=== PATIENT | male | born 1955 | race Caucasian/White ===

== ENCOUNTER 2017-01-28 14:38 | Inpatient (IN) | payer MEDICAID ==
[~2017-01-28] VITALS: Ht 167.6 cm; Wt 78.9 kg
[~2017-01-28 14:38] MED LIST: DIGOXIN; LISI10TA5 PO; SULFAMETHOXAZOLE
[2017-01-28 16:36] LABS: INR 1.4; PROTHROMBIN TIME 14.9 sec
[2017-01-28 16:39] LABS: EOSINOPHILS % 2.8 % (0.0-5.0); HEMATOCRIT. 36.7 % (42.0-52.0); HEMOGLOBIN. 12.4 g/dL (14.0-18.0); LYMPHOCYTES % 17.2 % (20.0-50.0); MEAN CORPUSCULAR HEMOGLOBIN 30.3 pg (28.0-32.0); MEAN CORPUSCULAR VOLUME 89.7 fL (80.0-94.0); MEAN PLATELET VOLUME 7.4 fl (7.4-10.4); MONOCYTES % 11.7 % (2.0-8.0); NEUTROPHILS % 67.3 % (40.0-76.0); PLATELET 271 x1000/uL (130-400); RED BLOOD CELL COUNT 4.09 mill/uL (4.7-6.1); RED CELL DISTRIBUTION WIDTH 15.9 % (11.6-14.6)
[2017-01-28 16:41] LABS: CARBON DIOXIDE 30 mEq/L (21-32); CHLORIDE 101 mEq/L (98-107)
[2017-01-28] MEDS ORDERED: FUROSEMIDE 40MG/4ML VIAL IVP ONE (18:15)
[2017-01-28 19:34] LABS: *AMPHETAMINES SCREEN URINE PRESUMTIVE POSITIVE (NEGATIVE); *BARBITURATES SCREEN URINE NEGATIVE (NEGATIVE); *BENZODIAZEPINES SCREEN URINE NEGATIVE (NEGATIVE); *COCAINE SCREEN URINE PRESUMTIVE POSITIVE (NEGATIVE); CANNABINOID URINE SCREEN NEGATIVE (NEGATIVE); METHADONE URINE SCREEN NEGATIVE (NEGATIVE); OPIATES URINE SCREEN NEGATIVE (NEGATIVE); PHENCYCLIDINE URINE SCREEN NEGATIVE (NEGATIVE)
[2017-01-28] MEDS ORDERED: HYDROCODONE/ACETAMINOPHEN 5/325MG TABLET PO PRN (21:15)
[2017-01-28] MEDS ORDERED: ACETAMINOPHEN 325MG TABLET PO PRN (21:15)
[2017-01-28] MEDS ORDERED: ONDANSETRON HCL 4MG/2ML VIAL IV PRN (21:15)
[2017-01-28] MEDS ORDERED: CLONIDINE 0.1MG TABLET PO PRN (21:15)
[2017-01-28] MEDS ORDERED: MAGNESIUM/ALUMINUM HYDROXIDE/SIMETHICONE 30ML UDC PO PRN (21:15)
[2017-01-28] MEDS ORDERED: DIGOXIN 500MCG/2ML AMP IV ONE (21:15)
[2017-01-28] MEDS ORDERED: DIPHENHYDRAMINE 50MG/ML VIAL IV PRN (21:15)
[2017-01-28] MEDS ORDERED: ZOLPIDEM TARTRATE 5MG TABLET PO PRN (21:15)
[2017-01-28] MEDS ORDERED: PROMETHAZINE/DEXTROMETHORPHAN 6.25-15MG/5ML BOTTLE 120ML PO PRN (22:15)
[2017-01-29] VITALS (9 sets, daily range): BP systolic 91–112; BP diastolic 50–77
[2017-01-29] MEDS ORDERED: CARV3.1242 PO (05:43)
[2017-01-29] MEDS ORDERED: DIGO250T4 PO (05:43)
[2017-01-29] MEDS ORDERED: LISI-186 PO (05:43)
[2017-01-29] MEDS ORDERED: FURO80TA87 PO (05:43)
[2017-01-29] MEDS: SODIUM CHLORIDE 0.9% INJ 3ML FLUSH IVF SCH ×3 (06:33→22:13)
[2017-01-29] MEDS: ENOXAPARIN 40MG/0.4ML SYR SUBCUT SCH (08:55)
[2017-01-29] MEDS ORDERED: LISINOPRIL 5MG TABLET PO SCH (09:00)
[2017-01-29] MEDS ORDERED: POTASSIUM CHLORIDE 20MEQ TABLET SR PO SCH (09:00)
[2017-01-29] MEDS ORDERED: FUROSEMIDE 100MG/10ML VIAL IVP SCH (09:00)
[2017-01-29] MEDS ORDERED: METOLAZONE 10MG TABLET PO SCH (14:15)
[2017-01-29] MEDS: FUROSEMIDE 100MG/10ML VIAL IVP SCH (16:21)
[2017-01-29] MEDS: GUAIFENESIN/CODEINE 100-10MG/5ML UDC PO PRN (16:22)
[2017-01-29] MEDS: POTASSIUM CHLORIDE 20MEQ TABLET SR PO SCH (16:56)
[2017-01-29] MEDS: CLOTRIMAZOLE 1% CREAM 30GM TOP SCH (22:13)
[2017-01-29] MEDS: HYDROCODONE/ACETAMINOPHEN 10/325MG TABLET PO PRN (22:51)
[2017-01-30] VITALS (12 sets, daily range): BP systolic 86–122; BP diastolic 48–73
[2017-01-30] MEDS: SODIUM CHLORIDE 0.9% INJ 3ML FLUSH IVF SCH ×3 (05:05→21:48)
[2017-01-30 06:14] LABS: HEMATOCRIT. 36.9 % (42.0-52.0); HEMOGLOBIN. 12.7 g/dL (14.0-18.0); MEAN CORPUSCULAR VOLUME 90.3 fL (80.0-94.0); MEAN PLATELET VOLUME 7.3 fl (7.4-10.4); PLATELET 238 x1000/uL (130-400); RED BLOOD CELL COUNT 4.09 mill/uL (4.7-6.1); RED CELL DISTRIBUTION WIDTH 15.9 % (11.6-14.6)
[2017-01-30] MEDS: GUAIFENESIN/CODEINE 100-10MG/5ML UDC PO PRN (07:39)
[2017-01-30 07:47] LABS: CARBON DIOXIDE 36 mEq/L (21-32); CHLORIDE 96 mEq/L (98-107)
[2017-01-30] MEDS: FUROSEMIDE 100MG/10ML VIAL IVP SCH ×2 (09:15→19:20)
[2017-01-30] MEDS: POTASSIUM CHLORIDE 20MEQ TABLET SR PO SCH ×2 (09:15→19:21)
[2017-01-30] MEDS: ENOXAPARIN 40MG/0.4ML SYR SUBCUT SCH (09:16)
[2017-01-30] MEDS: CLOTRIMAZOLE 1% CREAM 30GM TOP SCH ×2 (09:16→21:47)
[2017-01-30] MEDS: HYDROCODONE/ACETAMINOPHEN 10/325MG TABLET PO PRN (10:03)
[2017-01-30] MEDS ORDERED: POTASSIUM CHLORIDE 20MEQ TABLET SR PO NR (11:15)
[2017-01-30] MEDS: ASPIRIN 81MG TABLET PO SCH (11:25)
[2017-01-30 15:34] LABS: PLATELET ESTIMATE NORMAL
[2017-01-31] VITALS (28 sets, daily range): BP systolic 88–115; BP diastolic 20–85
[2017-01-31] MEDS: SODIUM CHLORIDE 0.9% INJ 3ML FLUSH IVF SCH ×3 (06:34→22:00)
[2017-01-31 07:57] LABS: CHLORIDE 88 mEq/L (98-107)
[2017-01-31 08:21] LABS: CARBON DIOXIDE 35 mEq/L (21-32)
[2017-01-31] MEDS: FUROSEMIDE 100MG/10ML VIAL IVP SCH ×2 (08:57→17:10)
[2017-01-31] MEDS: ENOXAPARIN 40MG/0.4ML SYR SUBCUT SCH (08:58)
[2017-01-31] MEDS: ASPIRIN 81MG TABLET PO SCH (08:58)
[2017-01-31] MEDS: POTASSIUM CHLORIDE 20MEQ TABLET SR PO SCH ×2 (08:58→17:10)
[2017-01-31] MEDS: HYDROCODONE/ACETAMINOPHEN 10/325MG TABLET PO PRN ×2 (09:23→18:42)
[2017-01-31] MEDS: CLOTRIMAZOLE 1% CREAM 30GM TOP SCH ×2 (10:00→21:58)
[2017-01-31] MEDS ORDERED: POTASSIUM CHLORIDE 20MEQ TABLET SR PO NR (14:45)
[2017-01-31] MEDS: SPIRONOLACTONE 25MG TABLET PO SCH (16:52)
[2017-01-31] MEDS ORDERED: DILTIAZEM HCL 30MG TABLET PO ONE (23:30)
[2017-02-01] VITALS (18 sets, daily range): BP systolic 89–133; BP diastolic 35–75
[2017-02-01] MEDS: HYDROCODONE/ACETAMINOPHEN 10/325MG TABLET PO PRN ×3 (02:55→17:35)
[2017-02-01] MEDS: SODIUM CHLORIDE 0.9% INJ 3ML FLUSH IVF SCH ×3 (05:14→21:04)
[2017-02-01] MEDS: DILTIAZEM HCL 30MG TABLET PO SCH ×3 (05:39→21:04)
[2017-02-01 07:38] LABS: EOSINOPHILS % 1.9 % (0.0-5.0); HEMATOCRIT. 38.1 % (42.0-52.0); HEMOGLOBIN. 12.8 g/dL (14.0-18.0); MEAN CORPUSCULAR HEMOGLOBIN 30.1 pg (28.0-32.0); MEAN CORPUSCULAR VOLUME 89.4 fL (80.0-94.0); MEAN PLATELET VOLUME 7.6 fl (7.4-10.4); MONOCYTES % 9.5 % (2.0-8.0); NEUTROPHILS % 70.6 % (40.0-76.0); PLATELET 236 x1000/uL (130-400); RED BLOOD CELL COUNT 4.26 mill/uL (4.7-6.1); RED CELL DISTRIBUTION WIDTH 15.7 % (11.6-14.6)
[2017-02-01 08:09] LABS: CARBON DIOXIDE 35 mEq/L (21-32); CHLORIDE 84 mEq/L (98-107)
[2017-02-01] MEDS: POTASSIUM CHLORIDE 20MEQ TABLET SR PO SCH ×2 (08:23→17:27)
[2017-02-01] MEDS: FUROSEMIDE 100MG/10ML VIAL IVP SCH (08:23)
[2017-02-01] MEDS: SPIRONOLACTONE 25MG TABLET PO SCH ×2 (08:23→17:28)
[2017-02-01] MEDS: ASPIRIN 81MG TABLET PO SCH (08:23)
[2017-02-01] MEDS: ENOXAPARIN 40MG/0.4ML SYR SUBCUT SCH (08:23)
[2017-02-01] MEDS: CLOTRIMAZOLE 1% CREAM 30GM TOP SCH ×2 (08:24→20:51)
[2017-02-01] MEDS ORDERED: POTASSIUM CHLORIDE 20MEQ TABLET SR PO NR (13:45)
[2017-02-01] MEDS: FUROSEMIDE 40MG/4ML VIAL IV SCH (17:28)
[2017-02-01] MEDS ORDERED: DIGOXIN 250MCG TABLET PO SCH (18:00)
[2017-02-02] VITALS (13 sets, daily range): BP systolic 92–110; BP diastolic 56–74
[2017-02-02] MEDS: DILTIAZEM HCL 30MG TABLET PO SCH ×2 (06:00→13:50)
[2017-02-02] MEDS: SODIUM CHLORIDE 0.9% INJ 3ML FLUSH IVF SCH ×2 (06:00→13:49)
[2017-02-02] MEDS: FUROSEMIDE 40MG/4ML VIAL IV SCH (06:01)
[2017-02-02] MEDS: ASPIRIN 81MG TABLET PO SCH (08:18)
[2017-02-02] MEDS: POTASSIUM CHLORIDE 20MEQ TABLET SR PO SCH (08:18)
[2017-02-02] MEDS: SPIRONOLACTONE 25MG TABLET PO SCH (08:18)
[2017-02-02] MEDS: HYDROCODONE/ACETAMINOPHEN 10/325MG TABLET PO PRN (08:24)
[2017-02-02] MEDS: CLOTRIMAZOLE 1% CREAM 30GM TOP SCH (08:35)
[2017-02-02] MEDS: ENOXAPARIN 40MG/0.4ML SYR SUBCUT SCH (08:37)
[2017-02-06] MEDS ORDERED: FURO-151 PO (01:58)
[2017-02-06] MEDS ORDERED: POTA20TA75 PO (01:58)
[2017-02-06] MEDS ORDERED: ALD50 PO (01:58)
[2017-02-06] MEDS ORDERED: DILT30TA38 PO (01:58)
[2017-02-06] MEDS ORDERED: SPIR25TA PO (01:58)
== END 2017-02-02 14:45 | disposition home or self-care (01) | DRG 194 ==
LOC: ER 16:06 → CANRESERV 20:51 → ENRESERV 20:51 → 5EST 21:14 → EDBEDREQTM 21:20 → EDBEDREQSVC 21:20 → EDBEDREQ 21:20 → ENRESERV 23:45
PROVIDERS: ADMIT Internal Medicine; ATTEND Internal Medicine
DX: I50.23 Acute on chronic systolic (congestive) heart failure (principal); I47.1 Supraventricular tachycardia; F14.10 Cocaine abuse, uncomplicated; F19.10 Other psychoactive substance abuse, uncomplicated; I48.91 Unspecified atrial fibrillation; Z83.3 Family history of diabetes mellitus; Z79.899 Other long term (current) drug therapy; Z88.8 Allergy status to other drugs, medicaments and biological substances
CPT/HCPCS: 36415; 71010; 80048; 80162; 80305; 83735; 83880; 84484; 85025; 85379; 85610; 93005; 93306; 96374; 96375; 99291; J1160; J1650; J1940; J2405